=== PATIENT | female | born 1965 | race Caucasian/White ===

== ENCOUNTER 2020-10-18 16:26 | Emergency (ER) | payer BC ==
[~2020-10-18] VITALS: Ht 165.1 cm; Wt 65.0 kg
[2020-10-18 17:04] VITALS: BP 129/96
--- NOTE | 2020-10-18 18:26 | NUR ---
At triage pt says she is here because she wants to find out if she has covid. VSS at triage. Pt also demanded to be present with her bf who is covid pos and was taken to room 39 for immediate tx.
--- NOTE | 2020-10-18 20:15 | NUR ---
COVID SWAB OBTAINED PER GUIDELINES-WALKED TO LAB
== END 2020-10-18 20:32 | disposition home or self-care (01) ==
LOC: ED 20:25
DX: U07.1 COVID-19 (principal)
CPT/HCPCS: 99283; U0003; U0005

== ENCOUNTER 2020-10-21 21:20 | Emergency (ER) | payer BC ==
[~2020-10-21] VITALS: Ht 162.6 cm; Wt 67.8 kg
[2020-10-21 22:19] LABS: BASOPHILS % (AUTO) 0 % (0-1); EOSINOPHILS % (AUTO) 0 % (1-7); LYMPHOCYTES % (AUTO) 18 % (22-44); MEAN CORPUSCULAR HEMOGLOBIN 29.7 pg (27.0-34.8); MEAN CORPUSCULAR HGB CONC 33.6 g/dL (32.4-35.8); MEAN PLATELET VOLUME 8.3 fL (7.4-10.4); MONOCYTES % (AUTO) 6 % (2-9); NEUTROPHILS % (AUTO) 77 % (42-75); PLATELET COUNT 176 x10^3/uL (130-400); RED BLOOD COUNT 4.66 x10^6/uL (3.82-5.3); RED CELL DISTRIBUTION WIDTH 14.4 % (9.6-15.2)
--- NOTE | 2020-10-21 22:23 | NUR ---
PATIENT REPORTS SHE WAS IN THE ED ON Sunday10/18/20 AND WAS POSITIVE FOR COVID ON Sunday10/19/20. PRESENTS TO THE ED TODAY FOR WORSENING OF SYMPTOMS. PATIENT IS SOB WITH SPEAKING, 4-5 WORDS AT A TIME, RA SATS 91-93%. REPORTS BOYFRIEND IS ALSO SICK WITH SAME SYMPTOMS. PATIENT DOES NOT KNOW WHERE SHE WAS EXPOSED, STATES SHE HAS NOT HAD THE VACCINE.
[2020-10-21 22:31] LABS: ALANINE AMINOTRANSFERASE 20 U/L (12-78); ALBUMIN 2.9 g/dL (3.4-5.0); ANION GAP 7 mmol/L (5-15); CALCIUM 8.9 mg/dL (8.5-10.1); CHLORIDE 105 mmol/L (98-107); CREATININE 0.93 mg/dL (0.55-1.02)
[2020-10-21 22:35] LABS: ALKALINE PHOSPHATASE 76 U/L (45-117); BILIRUBIN,TOTAL 0.3 mg/dL (0.2-1.0); TOTAL PROTEIN 7.7 g/dL (6.4-8.2); TROPONIN I < 0.015 ng/mL (0.000-0.045)
--- NOTE | 2020-10-21 23:17 | NUR ---
ROADTEST RA STATS 94-96%. PATIENT STOPPED SEVERAL TIMES TO REST, INCREASE SOB WITH AMBULATION.
--- NOTE | 2020-10-21 23:29 | NUR ---
PATIENT RESTING ON JESSENIA ORDONEZ AT THIS TIME, VSS, WILL CONTINUE TO MONITOR.
[2020-10-21] MEDS ORDERED: DEXAMETHASONE 4 MG/ML, 1ML IVPush ONE (23:30)
[2020-10-21] MEDS ORDERED: FILTER 0.22 MICRON IV ONE (23:30)
[2020-10-21] MEDS ORDERED: CASIRIVIMAB 600 MG, IMDEVIMAB (REGN10987) 600 MG in SODIUM CHLORIDE 0.9% 250 ML IVPB ONE (23:30)
[2020-10-21] MEDS ORDERED: DEXAMETHASONE 4 MG/ML, 5ML ONE (23:37)
--- NOTE | 2020-10-21 23:49 | NUR ---
PATIENT MEDICATED PER MAR.
--- NOTE | 2020-10-22 00:45 | NUR ---
Noelle ramos. Will monitor pt for one hour prior to d/c. Patient resting on JESSENIA crandall at this time, VSS.
[2020-10-22 01:02] VITALS: BP 137/98
--- NOTE | 2020-10-22 01:31 | NUR ---
Break RN: patient sleeping in [facility] [place]. No complaints at this time. Awaiting recheck at 0045.
== END 2020-10-22 02:21 ==
LOC: ED 22:14
DX: U07.1 COVID-19 (principal); J12.82 Pneumonia due to coronavirus disease 2019; R00.0 Tachycardia, unspecified
CPT/HCPCS: 36415; 71045; 80053; 84484; 85025; 93005; 96365; 96375; 99285; J1100